=== PATIENT | female | born 1970 | race Caucasian/White ===

== ENCOUNTER → 2022-05-14 | Outpatient (CLI) | payer BC ==
[2022-05-14 12:00] LABS: HEMATOCRIT 41.8 % (37.0-47.0); MEAN CELL VOLUME 95.2 fl (81.0-99.0); MEAN CORPUSCULAR HGB 31.2 pg (27.0-31.0); MEAN CORPUSCULAR HGB CONC 32.8 g/dl (33.0-37.0); MEAN PLATELET VOLUME 9.5 fl (9.6-12.3); RED BLOOD COUNT 4.39 10*6/uL (4.10-5.10); RED CELL DISTRI WIDTH 13.7 % (0-14.5); WHITE BLOOD COUNT 3.2 10*3/uL (4.8-10.8)
[2022-05-14 12:18] LABS: BUN 11 mg/dl (7-24); CHLORIDE 110 mmol/L (98-107); POTASSIUM 3.6 mmol/L (3.5-5.1); SGPT/ALT 18 U/L (12-78); SODIUM 144 mmol/L (136-145)
[2022-05-14 12:20] LABS: ALKALINE PHOSPHATASE 65 U/L (45-117); CHOLESTEROL 253 mg/dL (<200); CREATININE 1.11 mg/dL (0.55-1.02); SGOT/AST 27 IU/L (3-35); TOTAL PROTEIN 7.6 gm/dL (6.4-8.2); TRIGLYCERIDES 516 mg/dl (<150)
== END | disposition home or self-care (01) ==
LOC: LAB 11:35
PROVIDERS: ATTEND Family Medicine
DX: Z00.00 Encounter for general adult medical examination without abnormal findings (principal); E55.9 Vitamin D deficiency, unspecified; E78.00 Pure hypercholesterolemia, unspecified; K21.9 Gastro-esophageal reflux disease without esophagitis

== ENCOUNTER → 2025-03-23 | Outpatient (CLI) | payer BC ==
[2025-03-23 14:36] LABS: HEMATOCRIT 39.4 % (37.0-47.0); MEAN CELL VOLUME 96.6 fl (81.0-99.0); MEAN CORPUSCULAR HGB 30.4 pg (27.0-31.0); MEAN CORPUSCULAR HGB CONC 31.5 g/dl (33.0-37.0); MEAN PLATELET VOLUME 9.3 fl (9.6-12.3); RED BLOOD COUNT 4.08 10*6/uL (4.10-5.10); RED CELL DISTRI WIDTH 15.9 % (0-14.5); WHITE BLOOD COUNT 4.5 10*3/uL (4.8-10.8)
[2025-03-23 15:04] LABS: ALKALINE PHOSPHATASE 90 U/L (46-116); BUN 12 mg/dl (9-23); CHLORIDE 103 mmol/L (98-107); CHOLESTEROL 239 mg/dL (<200); LDL CHOLESTEROL 113 mg/dL (9-159); POTASSIUM 4.1 mmol/L (3.4-5.1); SGPT/ALT 11 U/L (5-49); T3 UPTAKE 24.5 % (22.4-36.7); THYROXINE (T4) TOTAL 6.8 ug/dl (4.5-10.9); TOTAL PROTEIN 7.6 gm/dL (6.0-8.0); TRIGLYCERIDES 222 mg/dl (<150); URIC ACID 8.1 mg/dL (3.1-7.8)
[2025-03-23 15:19] LABS: VITAMIN D, 25-HYDROXY 33.3 ng/mL (30-100)
== END | disposition home or self-care (01) ==
LOC: LAB 14:05
PROVIDERS: ATTEND Family Medicine
DX: E78.00 Pure hypercholesterolemia, unspecified (principal); E55.9 Vitamin D deficiency, unspecified; K21.9 Gastro-esophageal reflux disease without esophagitis; M25.59 Pain in other specified joint; R53.83 Other fatigue

== ENCOUNTER → 2025-04-17 | Outpatient (CLI) | payer BC ==
[~2025-04-17] MED LIST: BARIUM SULFATE 60% 355 ML BOT PO ONE; BARIUM SULFATE 98% 340 GM BOT PO ONE; BARIUM SULFATE TABLET 700 MG PO ONE; SODIUM BICARBONATE 4 GM PACK PO ONE
== END | disposition home or self-care (01) ==
LOC: RAD 03-29 08:00
PROVIDERS: ATTEND Family Medicine
DX: K44.9 Diaphragmatic hernia without obstruction or gangrene (principal); R13.10 Dysphagia, unspecified; K22.2 Esophageal obstruction

== ENCOUNTER → 2025-05-09 | Outpatient (CLI) | payer BC | END | disposition home or self-care (01) | LOC: LAB 12:28 | PROVIDERS: ATTEND Family Medicine | DX: M51.360 Other intervertebral disc degeneration, lumbar region with discogenic back pain only (principal); M47.817 Spondylosis without myelopathy or radiculopathy, lumbosacral region; R10.32 Left lower quadrant pain; M62.838 Other muscle spasm ==

== ENCOUNTER → 2025-07-04 | Outpatient (CLI) | payer BC | LOC: RAD 15:47 | PROVIDERS: ATTEND Family Medicine | DX: M50.323 Other cervical disc degeneration at C6-C7 level (principal); M50.322 Other cervical disc degeneration at C5-C6 level ==